=== PATIENT | male | born 1985 | race Caucasian/White ===

== ENCOUNTER 2016-05-09 09:44 | Emergency (ER) | payer OTHER ==
[2016-05-09] MEDS ORDERED: KETOROLAC 60 MG/2 ML VIAL IM STA (10:35)
[2016-05-09] MEDS ORDERED: oxyCOD/ACETAMIN 5 MG/325 MG TABLET PO STA (10:35)
[2016-05-09] MEDS ORDERED: CYCLOBENZAPRINE 10 MG TABLET PO STA (10:35)
[2016-05-09] MEDS ORDERED: oxyCOD/ACETAMIN 5 MG/325 MG TABLET PO ONE (10:41)
[2016-05-09] MEDS ORDERED: CYCLOBENZAPRINE 10 MG TABLET PO ONE (10:41)
[2016-05-09] MEDS ORDERED: KETOROLAC 60 MG/2 ML VIAL ONE (10:41)
== END 2016-05-09 11:53 | disposition home or self-care (01) ==
DX: M54.5 Low back pain (principal); X50.0XXA Overexertion from strenuous movement or load, initial encounter; F17.200 Nicotine dependence, unspecified, uncomplicated
CPT/HCPCS: 1040M; 96372; 99283